=== PATIENT | female | born 1945 | race Caucasian/White ===

== ENCOUNTER 2016-09-09 12:57 | Day surgery (SDC) | payer MEDICARE ==
[~2016-09-09 12:57] MED LIST: AMBI5TAB PO; BEE1CAP PO; BIOT50005 PO; CALC600T25 PO; CENTTAB PO; CORYDALIS PO; COVATAB PO; CYCL1TAB29 PO; FEXO15TA PO; FLAX100013 PO; LOSA50TA2 PO; MAGN1TAB14 PO; MIRA3350 PO; NIAC500T18 PO; OSTEO BI FLEX PO; PREV30CA11 PO; PROBCAP28 PO; PROG1CAP20 PO; RANI75TA8 PO; RED1CAP4 PO; RESV50CA PO; TUMERIC PO; VITACAP7 PO
[2016-09-09 13:24] VITALS: BP 137/93; PULSE 101; RESP 20; TEMP 97.8; O2SAT 93
[2016-09-09] MEDS ORDERED: TRIAMCINOLONE ACETONIDE 40 MG/ML VIAL ONE (14:40)
[2016-09-09 15:10] VITALS: BP 147/76; PULSE 72; RESP 18; TEMP 97.9; O2SAT 97
--- NOTE | 2016-09-09 15:14 | PD.RAD ---
Post Procedure Progress Note Pre Procedure Diagnosis: (1) Back pain Post Procedure Diagnosis: (1) Back pain Procedure Date: Sep 09, 2016 Supervising Radiologist: Ricardo Zimmer Proceduralist/Assist: RT Lucy(R), RT Alfred(R) Anesthesia: Local Plan of Activity Patient to Unit: [facility] Patient Condition: Good See PACS Report for procedural detail/treatment Spinal Procedure Nerve Root Injection L5, S1 Ricardo Zimmer MD Sep 09, 2016 15:14
--- NOTE | 2016-09-09 17:41 | RADRPT ---
EXAM DATE/TIME: 09/09/2016 14:55 [facility] COMPARISON: No previous studies available for comparison.8 INDICATIONS : Patient with history of low back pain in need of nerve root injection. MEDICAL HISTORY : HTN, GERD SURGICAL HISTORY : Breast augmentation, Bilateral rotator cuff surgery, Cervical fusion ENCOUNTER: Subsequent ACUITY: 1 month PAIN SCORE: 10/10 LOCATION: Right low back FLUORO TIME: 1.8 minutes CONTRAST: 1 cc Omnipaque (iohexol) 300 ACCESS LEVEL: Right S1 MEDICATIONS: 1.) 1 cc triamcinolone (Kenalog) IA 2.) 1 cc Lidocaine IA RESPONSE: Pre procedure pain level was 10/10. Post procedure pain level was 0/10. PROCEDURE : 1. Fluoroscopically guided nerve root injection. The risks, benefits and alternatives to the procedure were explained and verbal and written consent w as obtained. The site was prepped in sterile fashion. Full sterile technique was used, including ca p, mask, sterile gloves and gown and a large sterile sheet. Hand hygiene and 2% chlorhexidine and/or betadine/alcohol prep was utilized per protocol for cutaneous antisepsis. The skin and subcutaneous tissues were infiltrated with local anesthetic solution. With fluoroscopic guidance the targeted nerve root was localized and positive contrast was injected t o confirm epidural spread. Following this the prescribed medication was injected surrounding the ner ve root sleeve. The patient's preprocedure pain and post procedure pain levels were recorded. CONCLUSION: Uncomplicated fluoroscopically guided nerve root injection as above. Ricardo Zimmer MD on September 09, 2016 at 17:40 Board Certified Radiologist. This report was verified electronically.
--- NOTE | 2016-09-09 17:42 | RADRPT ---
EXAM DATE/TIME: 09/09/2016 14:55 [facility] COMPARISON: NERVE ROOT INJ, LUMB, INIT LVL,RT, November 22, 2014, 15:00. INDICATIONS : Patient with history of low back pain in need of nerve root injection. MEDICAL HISTORY : HTN, GERD SURGICAL HISTORY : Breast augmentation, Bilateral rotator cuff surgery, Cervical fusion ENCOUNTER: Subsequent ACUITY: 1 month PAIN SCORE: 10/10 LOCATION: Right low back FLUORO TIME: 1.8 minutes CONTRAST: 1 cc Omnipaque (iohexol) 300 ACCESS LEVEL: Right L5 MEDICATIONS: 1.) 1 cc triamcinolone (Kenalog) IA 2.) 1 cc Lidocaine IA RESPONSE: Pre procedure pain level was 10/10. Post procedure pain level was 0/10. PROCEDURE : 1. Fluoroscopically guided nerve root injection. The risks, benefits and alternatives to the procedure were explained and verbal and written consent w as obtained. The site was prepped in sterile fashion. Full sterile technique was used, including ca p, mask, sterile gloves and gown and a large sterile sheet. Hand hygiene and 2% chlorhexidine and/or betadine/alcohol prep was utilized per protocol for cutaneous antisepsis. The skin and subcutaneous tissues were infiltrated with local anesthetic solution. With fluoroscopic guidance the targeted nerve root was localized and positive contrast was injected t o confirm epidural spread. Following this the prescribed medication was injected surrounding the ner ve root sleeve. The patient's preprocedure pain and post procedure pain levels were recorded. CONCLUSION: Uncomplicated fluoroscopically guided nerve root injection as above. Ricardo Zimmer MD on September 09, 2016 at 17:40 Board Certified Radiologist. This report was verified electronically.
[2016-09-24] MEDS ORDERED: ALPR.5 PO (13:36)
[2017-01-01] MEDS ORDERED: RANI1TAB5 PO (14:05)
[2017-01-01] MEDS ORDERED: NIAC500T5 PO (14:06)
[2017-01-01] MEDS ORDERED: BIOTCAP PO (14:06)
[2017-01-01] MEDS ORDERED: MULTTAB67 PO (14:06)
[2017-01-08] MEDS ORDERED: IBUP800T23 PO (08:15)
== END 2016-09-09 15:38 | disposition home or self-care (01) ==
LOC: HROP 12:57 → HRIP 12:58 → HROP 15:38
PROVIDERS: ATTEND Family Medicine
DX: M51.37 Other intervertebral disc degeneration, lumbosacral region (principal); I10 Essential (primary) hypertension; K21.9 Gastro-esophageal reflux disease without esophagitis
CPT/HCPCS: 64483; 64484; J3301

== ENCOUNTER 2017-11-30 19:22 | Observation (INO) | payer MEDICARE ==
[~2017-11-30] VITALS: Ht 160 cm; Wt 74.4 kg
[~2017-11-30 19:22] MED LIST changes: +ALPR.5 PO; +ALRE0.2S3 EACH EYE; -AMBI5TAB PO; -BEE1CAP PO; +BENA25TA6 PO; -BIOT50005 PO; +BIOTCAP PO; -CALC600T25 PO; +CALC600T5 PO; -CENTTAB PO; -CORYDALIS PO; +CYCL10TA PO; -CYCL1TAB29 PO; +IBUP1TAB7 PO; +KETO0.02 EACH EYE; +KORE250C PO; -MAGN1TAB14 PO; +MAGN400T3 PO; +MULT10CA PO; +MULTTAB67 PO; -NIAC500T18 PO; +NIAC500T5 PO; -PREV30CA11 PO; +PREV30CA36 PO; +RANI1TAB5 PO; -RANI75TA8 PO; +SYSTSOL EACH EYE; +SYSTSOL15 EACH EYE; -TUMERIC PO
[2017-11-30 19:48] VITALS: BP 205/95; PULSE 99; RESP 18; TEMP 98.5; O2SAT 99
--- NOTE | 2017-11-30 20:11 | RADRPT ---
EXAM DATE/TIME: 11/30/2017 19:57 [facility] COMPARISON: No previous studies available for comparison. INDICATIONS : Chest pain. MEDICAL HISTORY : Hypertension. SURGICAL HISTORY : Breast augmentation. Cervical fusion. ENCOUNTER: Initial ACUITY: 1 day PAIN SCORE: 10/10 LOCATION: Bilateral chest FINDINGS: PA and lateral views of the chest demonstrate the lungs to be symmetrically aerated without evidence of mass, infiltrate or effusion. The cardiomediastinal contours are unremarkable. Osseous structure s are intact. Mild scoliotic curvature. Cervical spinal fusion plate. CONCLUSION: No acute disease. Damon Gaytan Jr., MD on November 30, 2017 at 20:08 Board Certified Radiologist. This report was verified electronically.
--- NOTE | 2017-11-30 20:12 | PD ---
HPI Chief Complaint: Chest Pain Time Seen by Provider: 19:57 Travel History International Travel<30 days: No Contact w/Intl Traveler<30days: No Traveled to known affect area: No History of Present Illness HPI The patient is a 72 year old female who presents to the [facility] emergency department with a history of sudden onset this morning of lightheaded sensation, chest heaviness, palpitations, nausea, diaphoresis, and left arm tingling. The patient reports that she took her blood pressure at that time and it was 180/128. She reports that she took an adult aspirin. She reports that her blood pressure continue to be elevated, therefore she came to the emergency department for evaluation and treatment. She reports that at this time she does have heaviness in her chest on the left side. She reports having tingling sensations down her left arm and into the left fifth digit. She denies having any neck pain. She reports that she continues to have nausea without diaphoresis. She denies any prior history of myocardial infarction, DVT , or PE. She denies having any lower extremity edema, or calf pain. The patient does report having a history of hypertension and hyperlipidemia. She denies any prior history of diabetes mellitus. She reports a history of smoking , however she quit in the 80s. 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 She reports that she had been sick intermittently since July related to urinary tract infections and sinus infections. She reports that 3 months ago she underwent a chemical stress test that was reportedly negative. She denies ever having a cardiac catheterization. The patient reports having a dry intermittent chronic cough. The patient denies having any known recent fevers, new or worsening abdominal pain, vomiting, diarrhea, urinary symptoms, or neurologic symptoms. [facility] Past Medical History Narrative Medical The patient's past medical history is significant for hypertension, hyperlipidemia that is diet controlled, acid reflux. Diminished Hearing: No GERD: Yes Hypertension: Yes Tetanus Vaccination: Unknown Influenza Vaccination: Yes Menopausal: Yes Past Surgical History Narrative Surgical The patient's past surgical history is significant for breast augmentation, Lasix eye surgery, rhinoplasty, sinus surgery, hemorrhoidectomy rotator cuff repair on the left and right, history of facelift, history of cervical fusion. Eye Surgery: Yes (CATARACT) Other Surgery: Yes (BILAT BREAST) Social History Alcohol Use: Yes (Glass WINE OCC) Tobacco Use: No Substance Use: No Allergies-Medications (Allergen,Severity, Reaction): Coded Allergies: codeine (Verified Allergy, Severe, Nausea/Vomiting, 07/15/17) *MDRO Multi-Drug Resistant Organism (Verified Adverse Reaction, Unknown, ) + ESBL E. coli in urine 09/17/14. Reported Meds & Prescriptions Reported Meds & Active Scripts Active Reported [Zolpium] Caltrate 600+D Chew (Calcium Carbonate-Vitamin D Chew) 600-400 Mg-Unit Chew 1 Tab PO BID Co Q-10 (Coenzyme Q10 (Ubidecarenone)) 200 Mg Cap Prometrium (Progesterone Micronized) 100 Mg Cap 100 Mg PO DAILY Benadryl Allergy (Diphenhydramine HCl) 25 Mg Tablet 50 Mg PO HS Divehi Ginseng (Ginseng) 250 Mg Cap 1 Cap PO DAILY Preservision Areds 2 Softgel (Vit C/E/Zn/Coppr/Lutein/Zeaxan) 250-200-40 Capsule 1 Cap PO BID Ibuprofen 800 Mg Tab 800 Mg PO DAILY PRN Multiple Vitamin 1 Tab 1 Tab PO DAILY Niacin 500 Mg Tab 500 Mg PO DAILY Biotin 5 Mg Cap 5 Mg PO Ranitidine 75 (Ranitidine HCl) 75 Mg Tab 75 Mg PO HS Take 30 to 60 minutes before eating food or drinking beverages that cause heartburn. Miralax Powder (Polyethylene Glycol 3350 Powder) 1 Pow Pow 1 Tab PO DAILY Resveratrol 50 Mg Cap 1 Cap PO DAILY Probiotic Daily (Probiotic Product) 1 Cap Cap 1 Tab PO DAILY Red Yeast Rice (Red Yeast Rice Extract) 300 Mg Cap 2 Cap PO DAILY [Osteo-Bi Flex] 1 Tab PO DAILY B Complex (B-Complex Vitamins) 1 Cap 75 Mg PO DAILY Covaryx (Estrogens, Esterified-Methyltestosterone) 1.25-2.5 Mg Tab 1 Tab PO ONE THREE TIMES A WEEK Magnesium 400 Mg Tab 400 Mg PO DAILY Losartan-Hydrochlorothiazide 50-12.5 Mg Tab 1 Tab PO DAILY Prevacid (Lansoprazole) 30 Mg Capdr 30 Mg PO DAILY Flax Seed Oil (Flaxseed (Linseed)) 1,000 Mg Cap 1,200 Mg PO DAILY Bernadette Allergy (Fexofenadine HCl) 180 Mg Tab 180 Mg PO DAILY Flexeril (Cyclobenzaprine HCl) 10 Mg Tab 10 Mg PO TID Calcium (Calcium Carbonate) 600 Mg Tab 2 Tab PO DAILY Review of Systems Except as stated in HPI: all other systems reviewed are Neg General / Constitutional: No: Fever Eyes: No: Visual changes HENT: No: Headaches Cardiovascular: Positive: Chest Pain or Discomfort, Palpitations, Dyspnea on exertion Respiratory: No: Shortness of Breath Gastrointestinal: No: Abdominal Pain Genitourinary: No: Dysuria Musculoskeletal: No: Pain Skin: No Rash Neurologic: No: Weakness Psychiatric: No: Depression Endocrine: No: Polydipsia Hematologic/Lymphatic: No: Easy Bruising Physical Exam Narrative General: The patient is a well-developed well-nourished female in no acute distress. Head and Neck exam: Head is normocephalic atraumatic. Eyes: EOMI, pupils are equal round and reactive to light. Nose: Midline septum with pink mucous membranes Mouth: Dentition unremarkable. Moist mucus membranes. Posterior oropharynx is not erythematous. No tonsillar hypertrophy. Uvula midline. Airway patent. Neck: No palpable lymphadenopathy. No nuchal rigidity. No thyromegaly. Cardiovascular: Regular rate and rhythm without murmurs, gallops, or rubs. No pulse deficit to the extremities on simultaneous auscultation and palpation of her radial artery. Lungs: Clear to auscultation bilaterally. No wheezes, rhonchi, or rales. Abdomen: Soft, without tenderness to palpation in all 4 quadrants of the abdomen. No guarding, rebound, or rigidity. Normal bowel sounds are audible. No tenderness on palpation of McBurney's point. Negative Kenyon sign. Extremities: No clubbing, cyanosis, or edema. 2+ pulses in all 4 extremities. No calf tenderness on palpation. Back: No spinous process tenderness to palpation. No costovertebral angle tenderness to palpation. Neurologic Exam: Grossly nonfocal. Skin Exam: No rash noted. Intact skin that is warm and dry. Data Data Last Documented VS Vital Signs Date Time Temp Pulse Resp B/P (MAP) Pulse Ox O2 Delivery O2 Flow Rate FiO2 11/30/17 20:37 82 18 132/71 (91) 100 Room Air 11/30/17 19:48 98.5 Orders Orders Electrocardiogram (11/30/17 19:45) Complete Blood Count With Diff (11/30/17 19:45) Basic Metabolic Panel (Bmp) (11/30/17 19:45) Ckmb (Isoenzyme) Profile (11/30/17 19:45) Troponin I (11/30/17 19:45) Ecg Monitoring (11/30/17 19:45) B-Type Natriuretic Peptide (11/30/17 19:59) Prothrombin Time / Inr (Pt) (11/30/17 19:59) Act Partial Throm Time (Ptt) (11/30/17 19:59) Hepatic Functional Panel (11/30/17 19:59) Lipase (11/30/17 19:59) Magnesium (Mg) (11/30/17 19:59) Chest, Pa & Lat (11/30/17 19:45) Nitroglycerin Sl (Nitrostat Sl) (11/30/17 20:15) Nitroglycerin 2% Oint (Nitroglycerin 2% (11/30/17 20:15) Admit Order (Ed Use Only) (11/30/17 22:41) Labs Laboratory Tests Test 11/30/17 20:20 White Blood Count 8.2 TH/MM3 Red Blood Count 4.69 MIL/MM3 Hemoglobin 15.3 GM/DL Hematocrit 44.0 % Mean Corpuscular Volume 94.0 FL Mean Corpuscular Hemoglobin 32.6 PG Mean Corpuscular Hemoglobin Concent 34.7 % Red Cell Distribution Width 13.3 % Platelet Count 201 TH/MM3 Mean Platelet Volume 10.8 FL Neutrophils (%) (Auto) 63.6 % Lymphocytes (%) (Auto) 21.0 % Monocytes (%) (Auto) 12.6 % Eosinophils (%) (Auto) 2.2 % Basophils (%) (Auto) 0.6 % Neutrophils # (Auto) 5.2 TH/MM3 Lymphocytes # (Auto) 1.7 TH/MM3 Monocytes # (Auto) 1.0 TH/MM3 Eosinophils # (Auto) 0.2 TH/MM3 Basophils # (Auto) 0.1 TH/MM3 CBC Comment DIFF FINAL Differential Comment Prothrombin Time 10.0 SEC Prothromb Time International Ratio 1.0 RATIO Activated Partial Thromboplast Time 23.9 SEC Blood Urea Nitrogen 12 MG/DL Creatinine 1.18 MG/DL Random Glucose 111 MG/DL Calcium Level 9.0 MG/DL Sodium Level 142 MEQ/L Potassium Level 3.6 MEQ/L Chloride Level 106 MEQ/L Carbon Dioxide Level 27.5 MEQ/L Anion Gap 9 MEQ/L Estimat Glomerular Filtration Rate 45 ML/MIN Magnesium Level 2.3 MG/DL Total Bilirubin 0.5 MG/DL Direct Bilirubin 0.1 MG/DL Indirect Bilirubin 0.4 MG/DL Aspartate Amino Transf (AST/SGOT) 19 U/L Alanine Aminotransferase (ALT/SGPT) 26 U/L Alkaline Phosphatase 70 U/L Total Creatine Kinase 52 U/L Troponin I LESS THAN 0.02 NG/ML B-Type Natriuretic Peptide 63 PG/ML Total Protein 7.6 GM/DL Albumin 3.7 GM/DL Lipase 185 U/L MDM Medical Decision Making Medical Screen Exam Complete: Yes Emergency Medical Condition: Yes Medical Record Reviewed: Yes Differential Diagnosis Acute coronary syndrome, versus pulmonary embolism, versus aortic dissection, versus pneumonia, versus pneumothorax, versus acid reflux Narrative Course During the course of the patient's emergency department visit, the patient's history, examination, and differential diagnosis were reviewed with the patient. The patient was placed on a manager cardiac with oximetry and frequent blood pressure monitoring. The patient had IV access obtained and blood work sent for analysis. The patient had an EKG done on arrival that shows a sinus rhythm heart rate of 86, QRS duration 84 ms, QTC [address] segment elevation is noted. T waves are inverted in V1. The patient was initially provided nitroglycerin sublingual every 5 minutes 3 as needed chest pain, nitroglycerin 1 inch the chest wall. The patient reports that she took an adult aspirin prior to arrival per The patient's laboratory studies were reviewed and remarkable for a white count of 8.2, hemoglobin 15.3, platelets 201 with 12.6- monocytes, basic metabolic profile is remarkable for creatinine 1.18, glucose 111, liver function tests are within normal limits, CPK and troponin I initial set are within normal limits, BNP is 63, lipase 185, PT 10, PTT 23.9. Radiology studies were reviewed and remarkable for a chest x-ray that shows no acute cardiopulmonary disease. The patient will be admitted to the chest pain center for rule out serial cardiac enzyme protocol followed by consideration of additional testing by the parts counter sales person The patient's results were discussed with the patient, including the plan of care. I explained that further testing and/ or monitoring is indicated based on the patient's history, examination, and/ or laboratory findings. Therefore, I recommended admission for additional evaluation. The patient expressed understanding and was agreeable with this plan. The patient was admitted to the hospital in stable condition and sent to a bed under the care of the chest pain center. Diagnosis Primary Impression: Chest pain, rule out acute myocardial infarction Admitting Information Admitting Physician Requests: Francine Hutson MD November 30, 2017 20:12
[2017-11-30] MEDS ORDERED: COQ1200C3 (20:15)
[2017-11-30] MEDS ORDERED: NITROGLYCERIN 0.4 MG SL 25 TABS/BTL SL PRN (20:15)
[2017-11-30] MEDS ORDERED: PROG1CAP20 PO (20:15)
[2017-11-30] MEDS ORDERED: NITROGLYCERIN 2% OINT 1 GM PACKET TOPICAL ONE (20:15)
[2017-11-30] MEDS ORDERED: CALTCHW5 PO (20:15)
[2017-11-30] MEDS ORDERED: [UNRECOGNIZED DRUG - OTHER] (20:15)
[2017-11-30 20:16] VITALS: BP 183/94; PULSE 82; RESP 16; O2SAT 100
[2017-11-30 20:37] VITALS: BP 132/71; PULSE 82; RESP 18; O2SAT 100
[2017-11-30 20:58] LABS: ALBUMIN 3.7 GM/DL (3.4-5.0); DIRECT BILIRUBIN ADULT 0.1 MG/DL (0.0-0.2); MAGNESIUM 2.3 MG/DL (1.5-2.5)
[2017-11-30 21:00] LABS: INDIRECT BILIRUBIN 0.4 MG/DL (0.0-0.8); TOTAL BILIRUBIN ADULT 0.5 MG/DL (0.2-1.0); TOTAL PROTEIN 7.6 GM/DL (6.4-8.2)
[2017-11-30 21:54] LABS: AUTOMATED NEUTROPHIL # 5.2 TH/MM3 (1.8-7.7); BASOPHIL # 0.1 TH/MM3 (0-0.2); BASOPHIL % 0.6 % (0.0-2.0); EOSINOPHIL # 0.2 TH/MM3 (0-0.4); EOSINOPHIL % 2.2 % (0.0-4.0); HEMOGLOBIN 15.3 GM/DL (11.6-15.3); LYMPHOCYTE # 1.7 TH/MM3 (1.0-4.8); MEAN CORPUSCULAR HEMOGLOBIN 32.6 PG (27.0-34.0); MEAN CORPUSCULAR HGB CONC 34.7 % (32.0-36.0); MEAN PLATELET VOLUME 10.8 FL (7.0-11.0); MONO % 12.6 % (0.0-8.0); NEUT % 63.6 % (16.0-70.0); PLATELET COUNT 201 TH/MM3 (150-450); RED BLOOD COUNT 4.69 MIL/MM3 (4.00-5.30); RED CELL DISTRIBUTION WIDTH 13.3 % (11.6-17.2); WHITE BLOOD COUNT 8.2 TH/MM3 (4.0-11.0)
[2017-11-30 22:03] LABS: BLOOD UREA NITROGEN 12 MG/DL (7-18); CHLORIDE 106 MEQ/L (98-107); CREATININE 1.18 MG/DL (0.50-1.00); GLOMERULAR FILTRATION RATE 45 ML/MIN (>89); GLUCOSE,RANDOM 111 MG/DL (74-106); SODIUM (NA) 142 MEQ/L (136-145)
[2017-11-30 22:18] LABS: BICARBONATE 27.5 MEQ/L (21.0-32.0); TROPONIN I LESS THAN 0.02 NG/ML (0.02-0.05)
[2017-12-01] VITALS (9 sets, daily range): BP systolic 114–170; BP diastolic 58–87; PULSE 61–77; RESP 18–20; TEMP 98.1–98.3; O2SAT 95–100
[2017-12-01] MEDS ORDERED: ACETAMINOPHEN 500 MG CPLT PO PRN
[2017-12-01] MEDS ORDERED: SODIUM CHLORIDE 0.9% FLUSH 10 ML FLUSH IV FLUSH PRN
[2017-12-01 02:13] LABS: TROPONIN I LESS THAN 0.02 NG/ML (0.02-0.05)
[2017-12-01 04:32] LABS: TROPONIN I LESS THAN 0.02 NG/ML (0.02-0.05)
[2017-12-01] MEDS ORDERED: SODIUM CHLORIDE 0.9% FLUSH 10 ML FLUSH IV FLUSH SCH (09:00)
--- NOTE | 2017-12-01 09:31 | EKG ---
Date Performed: 11/30/2017 Time Performed: 19:48:49 PTAGE: 72 years EKG: Sinus rhythm BORDERLINE LEFT AXIS DEVIATION BORDERLINE ECG Since PREVIOUS TRACING , no significant change noted PREVIOUS TRACIN09/17/2014 08.54 DOCTOR: Thi Brady Interpretating Date/Time 12/01/2017 09:31:03
--- NOTE | 2017-12-01 09:34 | EKG ---
Date Performed: 12/01/2017 Time Performed: 01:45:14 PTAGE: 72 years EKG: SINUS BRADYCARDIA POSSIBLE RIGHT VENTRICULAR CONDUCTION DELAY BORDERLINE ECG Since PREVIOUS TRACING , no significant change noted PREVIOUS TRACIN11/30/2017 19.48 DOCTOR: Tih Brady Interpretating Date/Time 12/01/2017 09:33:18
--- NOTE | 2017-12-01 09:35 | EKG ---
Date Performed: 12/01/2017 Time Performed: 04:27:38 PTAGE: 72 years EKG: Sinus rhythm WITH SINUS ARRHYTHMIA POSSIBLE LEFT ATRIAL ENLARGEMENT INDETERMINATE AXIS POSSIBLE RIGHT VENTRICULAR CONDUCTION DELAY SEPTAL MYOCARDIAL INFARCTION ABNORMAL ECG artifact Since PREVIOUS TRACING , no significant change noted PREVIOUS TRACIN12/01/2017 01.45 DOCTOR: Thi Brady Interpretating Date/Time 12/01/2017 09:33:58
[2017-12-01] MEDS ORDERED: METOPROLOL TARTRATE 50 MG TAB PO SCH (09:45)
[2017-12-01] MEDS ORDERED: METOPROLOL TARTRATE 5 MG/5 ML VIAL IV PUSH PRN (09:45)
[2017-12-01] MEDS ORDERED: NITROGLYCERIN 0.4 MG SL 25 TABS/BTL SL SCH (09:45)
[2017-12-01] MEDS ORDERED: NON-FORMULARY DRUG (Losartan-Hydrochlorothiazide 1 TAB) PO SCH (10:45)
[2017-12-01] MEDS ORDERED: LOSARTAN 50 MG TAB PO SCH (10:52)
[2017-12-01] MEDS ORDERED: HYDROCHLOROTHIAZIDE 12.5 MG CAP PO SCH (10:52)
[2017-12-01] MEDS ORDERED: NITROGLYCERIN 0.4 MG SL 25 TABS/BTL SL ONE (11:01)
--- NOTE | 2017-12-01 11:34 | HHI.HP ---
[facility] Primary Care Physician Ramana Mcwilliams MD Chief Complaint Chest pain History of Present Illness This is a 72-year-old female history of hypertension and hyperlipidemia the presents to ED stating that yesterday she had sensation of palpitations which she describes as a sensation of of a hot hicks. That also was the type of discomfort that she described. She also felt lightheaded. She checked her blood pressure and found to be 180/128. At that point she decided to come to the ED. 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 Currently denies any chest discomforts. Denies sensation of heart beating rapidly or irregularly. Voices compliance with her blood pressure medication which is losartan/HCT 50/12.5 mg daily. Review of Systems General: Patient denies fevers, chills, and recent travel. HEENT: Patient denies headache, sore throat, difficulty swallowing. Cardiovascular: Planes of palpitations but not necessarily beating irregularly or rapidly. States it felt like a hot rushing sensation in her chest. Has the chest discomfort as mentioned above. Denies sensation of heart beating rapidly or irregularly. No syncope. Denies diaphoresis. Respiratory: Denies shortness of breath or inspirational chest discomfort. Denies coughing wheezing or hemoptysis. GI: Patient denies nausea, vomiting, diarrhea, abdominal pain, bloody stools. Musculoskeletal: Patient denies joint pain or edema. Denies calf pain or edema. Neurovascular: Patient denies numbness, tingling, weakness in extremities. Denies headache. Endocrine: Denies polyuria and polydipsia. Hematologic: Denies easy bruising. Skin: Denies rash or itching. Past Family Social History Allergies: Coded Allergies: codeine (Verified Allergy, Severe, Nausea/Vomiting, 07/15/17) *MDRO Multi-Drug Resistant Organism (Verified Adverse Reaction, Unknown, ) + ESBL E. coli in urine 09/17/14. Past Medical History Hypertension and hyperlipidemia. Denies diabetes and known CAD. Past Surgical History Cervical fusion. Rotator cuff repair of left and right. Reported Medications Reported Meds & Active Scripts Active Reported [Zolpium] Caltrate 600+D Chew (Calcium Carbonate-Vitamin D Chew) 600-400 Mg-Unit Chew 1 Tab PO BID Co Q-10 (Coenzyme Q10 (Ubidecarenone)) 200 Mg Cap Prometrium (Progesterone Micronized) 100 Mg Cap 100 Mg PO DAILY Benadryl Allergy (Diphenhydramine HCl) 25 Mg Tablet 50 Mg PO HS Tamazight Ginseng (Ginseng) 250 Mg Cap 1 Cap PO DAILY Preservision Areds 2 Softgel (Vit C/E/Zn/Coppr/Lutein/Zeaxan) 250-200-40 Capsule 1 Cap PO BID Ibuprofen 800 Mg Tab 800 Mg PO DAILY PRN Multiple Vitamin 1 Tab 1 Tab PO DAILY Niacin 500 Mg Tab 500 Mg PO DAILY Biotin 5 Mg Cap 5 Mg PO Ranitidine 75 (Ranitidine HCl) 75 Mg Tab 75 Mg PO HS Take 30 to 60 minutes before eating food or drinking beverages that cause heartburn. Miralax Powder (Polyethylene Glycol 3350 Powder) 1 Pow Pow 1 Tab PO DAILY Resveratrol 50 Mg Cap 1 Cap PO DAILY Probiotic Daily (Probiotic Product) 1 Cap Cap 1 Tab PO DAILY Red Yeast Rice (Red Yeast Rice Extract) 300 Mg Cap 2 Cap PO DAILY [Osteo-Bi Flex] 1 Tab PO DAILY B Complex (B-Complex Vitamins) 1 Cap 75 Mg PO DAILY Covaryx (Estrogens, Esterified-Methyltestosterone) 1.25-2.5 Mg Tab 1 Tab PO ONE THREE TIMES A WEEK Magnesium 400 Mg Tab 400 Mg PO DAILY Losartan-Hydrochlorothiazide 50-12.5 Mg Tab 1 Tab PO DAILY Prevacid (Lansoprazole) 30 Mg Capdr 30 Mg PO DAILY Flax Seed Oil (Flaxseed (Linseed)) 1,000 Mg Cap 1,200 Mg PO DAILY Bernadette Allergy (Fexofenadine HCl) 180 Mg Tab 180 Mg PO DAILY Flexeril (Cyclobenzaprine HCl) 10 Mg Tab 10 Mg PO TID Calcium (Calcium Carbonate) 600 Mg Tab 2 Tab PO DAILY Active Ordered Medications Current Medications Medications (Trade) Dose Ordered Sig/Simin Route Start Time Stop Time Status Last Admin (Nitrostat Sl) 0.4 mg Q5M PRN SL 11/30/17 20:15 11/30/17 20:25 (NS Flush) 2 ml UNSCH PRN IV FLUSH 12/01/17 00:00 (NS Flush) 2 ml BID IV FLUSH 12/01/17 09:00 12/01/17 09:00 (Tylenol) 500 mg Q4H PRN PO 12/01/17 00:00 (Lopressor) 50 mg SPAGHETTI MACHINE OPERATOR PO 12/01/17 09:45 12/05/17 09:44 (Lopressor Inj) 5 mg SPAGHETTI MACHINE OPERATOR PRN IV PUSH 12/01/17 09:45 12/05/17 09:44 12/01/17 11:14 (Nitrostat Sl) 0.4 mg ONCE SL 12/01/17 09:45 12/05/17 09:44 (Cozaar) 50 mg DAILY PO 12/01/17 10:52 (Microzide) 12.5 mg DAILY PO 12/01/17 10:52 Family History Denies family history of CAD. Social History Does not smoke. Has occasional glass of wine. Denies illicit drug use per Physical Exam Vital Signs Vital Signs Date Time Temp Pulse Resp B/P (MAP) Pulse Ox O2 Delivery O2 Flow Rate FiO2 12/01/17 11:16 61 144/78 (100) 12/01/17 10:52 77 18 148/63 (91) 100 12/01/17 10:19 68 142/70 (94) 12/01/17 08:05 98.1 72 20 114/60 (78) 95 12/01/17 08:00 68 12/01/17 00:16 12/01/17 00:00 97 Nasal Cannula 2.00 11/30/17 20:37 82 18 132/71 (91) 100 Room Air 11/30/17 20:16 82 16 183/94 (123) 100 Room Air 11/30/17 20:02 92 100 11/30/17 19:48 98.5 99 18 205/95 (131) 99 Physical Exam GENERAL: This is a well-nourished, well-developed patient, in no apparent distress. Patient speaks in clear complete sentences. Patient is pleasant. HEENT: Head is atraumatic and normocephalic. Neck is supple without lymphadenopathy and trachea is midline. No JVD or carotid bruits. CARDIOVASCULAR: Regular rate and rhythm without murmurs, gallops, or rubs. RESPIRATORY: Clear to auscultation. Breath sounds equal bilaterally. No wheezes , rales, or rhonchi. Chest wall is nontender. No use of accessory muscles. GASTROINTESTINAL: Abdomen is nontender, nondistended. Abdomen soft. No obvious pulsatile mass or bruit. No CVA tenderness. Strong femoral pulses bilaterally. Normal bowel sounds in all quadrants. MUSCULOSKELETAL: Patient is moving upper and lower extremities freely. No calf tenderness or edema, no Homans sign. Strong pulses in upper and lower extremities. NEUROLOGICAL: Patient is alert and oriented. Cranial nerves 2-12 are grossly intact. No focal deficits and speech is clear. SKIN: No rash and turgor is normal. Laboratory Laboratory Tests Test 11/30/17 20:20 12/01/17 01:20 12/01/17 03:10 White Blood Count 8.2 Red Blood Count 4.69 Hemoglobin 15.3 Hematocrit 44.0 Mean Corpuscular Volume 94.0 Mean Corpuscular Hemoglobin 32.6 Mean Corpuscular Hemoglobin Concent 34.7 Red Cell Distribution Width 13.3 Platelet Count 201 Mean Platelet Volume 10.8 Neutrophils (%) (Auto) 63.6 Lymphocytes (%) (Auto) 21.0 Monocytes (%) (Auto) 12.6 Eosinophils (%) (Auto) 2.2 Basophils (%) (Auto) 0.6 Neutrophils # (Auto) 5.2 Lymphocytes # (Auto) 1.7 Monocytes # (Auto) 1.0 Eosinophils # (Auto) 0.2 Basophils # (Auto) 0.1 CBC Comment DIFF FINAL Differential Comment Prothrombin Time 10.0 Prothromb Time International Ratio 1.0 Activated Partial Thromboplast Time 23.9 Blood Urea Nitrogen 12 Creatinine 1.18 Random Glucose 111 Calcium Level 9.0 Sodium Level 142 Potassium Level 3.6 Chloride Level 106 Carbon Dioxide Level 27.5 Anion Gap 9 Estimat Glomerular Filtration Rate 45 Magnesium Level 2.3 Total Bilirubin 0.5 Direct Bilirubin 0.1 Indirect Bilirubin 0.4 Aspartate Amino Transf (AST/SGOT) 19 Alanine Aminotransferase (ALT/SGPT) 26 Alkaline Phosphatase 70 Total Creatine Kinase 52 61 75 Troponin I LESS THAN 0.02 LESS THAN 0.02 LESS THAN 0.02 B-Type Natriuretic Peptide 63 Total Protein 7.6 Albumin 3.7 Lipase 185 Result Diagram: 11/30/17201911/30/172019 Imaging Last 24 hours Impressions Chest X-Ray 11/30/171944 Signed Impressions: Service Date/Time: Thursday, November 30, 2017 19:57 - CONCLUSION: No acute disease. Damon Gaytan Jr., MD Course EKGs are sinus rhythm without significant ST segment depressions or elevations. Upon reviewing patient's monitor. There was a 6 beat episode of nonsustained V. tach at 250 5 in the morning. I discussed this with the patient. She states she was sleeping at that time. Caprini VTE Risk Assessment Caprini VTE Risk Assessment: Mod/High Risk (score >= 2) Caprini Risk Assessment Model Point Value = 1 Point Value = 2 Point Value = 3 Point Value = 5 Age 41-60 Minor surgery BMI > 25 kg/m2 Swollen legs Varicose veins or History of unexplained or recurrent spontaneous Oral contraceptives or hormone replacement Sepsis (< 1 month) Serious lung disease, including pneumonia (< 1 month) Abnormal pulmonary function Acute myocardial infarction Congestive heart failure (< 1 month) History of inflammatory bowel disease Medical patient at bed rest Age 61-74 Arthroscopic surgery Major open surgery (> 45 min) Laparoscopic surgery (> 45 min) Malignancy Confined to bed (> 72 hours) Immobilizing plaster cast Central venous access Age >= 75 History of VTE Family history of VTE Factor V Leiden Prothrombin [id number] Lupus anticoagulant Anticardiolipin antibodies Elevated serum homocysteine Heparin-induced thrombocytopenia Other congenital or acquired thrombophilia Stroke (< 1 month) Elective arthroplasty Hip, pelvis, or leg fracture Acute spinal cord injury (< 1 month) Prophylaxis Regimen Total Risk Factor Score Risk Level Prophylaxis Regimen 0-1 Low Early ambulation 2 Moderate Order ONE of the following: *Sequential Compression Device (SCD) *Heparin 5000 units SQ BID 3-4 Higher Order ONE of the following medications: *Heparin 5000 units SQ TID *Enoxaparin/Lovenox 40 mg SQ daily (WT < 150 kg, CrCl > 30 mL/min) *Enoxaparin/Lovenox 30 mg SQ daily (WT < 150 kg, CrCl > 10-29 mL/min) *Enoxaparin/Lovenox 30 mg SQ BID (WT < 150 kg, CrCl > 30 mL/min) AND/OR *Sequential Compression Device (SCD) 5 or more Highest Order ONE of the following medications: *Heparin 5000 units SQ TID (Preferred with Epidurals) *Enoxaparin/Lovenox 40 mg SQ daily (WT < 150 kg, CrCl > 30 mL/min) *Enoxaparin/Lovenox 30 mg SQ daily (WT < 150 kg, CrCl > 10-29 mL/min) *Enoxaparin/Lovenox 30 mg SQ BID (WT < 150 kg, CrCl > 30 mL/min) AND *Sequential Compression Device (SCD) Assessment and Plan Assessment and Plan * Chest pain: Patient has had serial cardiac enzymes and EKGs for ruling out purposes. Patient has been seen by Dr. Brady of cardiology in the chest pain center. She will undergo a CTA of the coronaries and further plan will be pending the results of that study. Patient will eventually need follow-up with her flat knitter. Patient should return to ED for interval issues. * Hypertension: Resume her medication. Add amlodipine. * Hyperlipidemia: Patient states she was unable to tolerate statins quite a while ago. She should further discuss this with her physician to see if there is a statin that she will tolerate. * Nonsustained ventricular tachycardia: This is observed at 255 this morning on the monitor. Patient was asleep at the time and was not aware of any symptoms. This was discussed with Dr. Brady. A copy of the strip will be provided to the patient certainly discussed with her flat knitter on outpatient basis. Patient is stable at this time. She is agreeable to this plan Seferino Jacobson December 01, 2017 11:33
[2017-12-01] MEDS ORDERED: IODIXANOL 320 MG/ML 10 ML VIAL (for Rad CT) IVCONTRAST ONE (11:35)
[2017-12-01] MEDS ORDERED: amLODIPine BESYLATE 5 MG TAB PO ONE (15:30)
--- NOTE | 2017-12-01 15:56 | RADRPT ---
EXAM DATE: 12/01/2017 3:44 PM EDT AGE/SEX: 72 years / Female INDICATIONS: Chest pain. CLINICAL DATA: This is the patient's initial encounter. Patient reports that signs and symptoms have been present for 1 day and indicates a pain score of 3/10. MEDICAL/SURGICAL HISTORY: Hypertension. None. RADIATION DOSE: 7.34 CTDI (mGy) COMPARISON: No prior [facility] exams available for comparison. STUDY QUALITY: TECHNIQUE: The patient was given beta-blockers prior to the procedure. Resting heart rate prior to t he procedure was approximately bpm. Multiple contiguous axial images were obtained through the heart during bolus infusion of 100 ml Visipaque 320 (iodixanol) nonionic water-soluble contrast as a singl e exam dose. Images were acquired during peak arterial contrast. Images were reconstructed using a r etrospective gating algorithm including single sector and multi-sector algorithms at multiple phases of the cardiac cycle. Images were interpreted using a combination of 2D and 3D visualization modes in cluding curved planar reformation, thin slab maximum intensity projection and volume rendering in ord er to evaluate cardiac structure, morphology and function. Using automated exposure control and adjus tment of the mA and/or kV according to patient size, radiation dose was kept as low as reasonably ach ievable to obtain optimal diagnostic quality images. FINDINGS: VESSEL ANALYSIS: There are three aortic valve leaflets with normal origin of the coronary ostia. DOMINANCE: The coronary system is right dominant. LEFT MAIN: Normal size vessel without calcification or stenosis. LAD: Normal size vessel without calcification or stenosis. CIRCUMFLEX: Normal size vessel without calcification or stenosis. RCA: Normal size vessel without calcification or stenosis CONCLUSION: Normal coronaries Electronically signed by: Bryec Prado MD 12/01/2017 3:55 PM EDT
[2017-12-01] MEDS ORDERED: cloNIDine HCL 0.1 MG TAB PO PRN (16:00)
[2017-12-01] MEDS ORDERED: AMLO5TAB2 PO (16:03)
--- NOTE | 2017-12-01 16:04 | HHI.DCPOC ---
Discharge Care Plan Diagnosis: (1) Chest pain (2) Hypertension (3) Hyperlipidemia (4) Non-sustained ventricular tachycardia Goals to Promote Your Health * To prevent worsening of your condition and complications * To maintain your health at the optimal level Directions to Meet Your Goals Take your medications as prescribed Follow your dietary instruction Follow activity as directed Keep your appointments as scheduled Take your immunizations and boosters as scheduled If your symptoms worsen call your PCP, if no PCP go to Urgent Care Center or Emergency Room Smoking is Dangerous to Your Health. Avoid second hand smoke Call the 24-hour hour crisis hotline for domestic abuse at Seferino Jacobson December 01, 2017 16:04
== END 2017-12-01 17:17 | disposition home or self-care (01) ==
LOC: NEPE 19:22 → NEDA 22:43 → NEPFCDU 12-01 00:15
PROVIDERS: ADMIT Internal Medicine Cardiovascular Disease; ATTEND Internal Medicine Cardiovascular Disease
DX: R07.89 Other chest pain (principal); I10 Essential (primary) hypertension; R05 Cough; E78.5 Hyperlipidemia, unspecified; I47.2 Ventricular tachycardia; R00.1 Bradycardia, unspecified; R94.31 Abnormal electrocardiogram [ECG] [EKG]; K21.9 Gastro-esophageal reflux disease without esophagitis
CPT/HCPCS: 71046; 75574; 80048; 80076; 82550; 83690; 83735; 83880; 84484; 85025; 85610; 85730; 93005; 99285; G0378; Q9967

== ENCOUNTER → 2017-12-31 | Day surgery (SDC) | payer MEDICARE ==
[~2017-12-31] MED LIST changes: -ALPR.5 PO; -ALRE0.2S3 EACH EYE; +AMLO5TAB2 PO; +BUPIVACAINE HCL PF 0.75% 30 ML VIAL ONE; +CALTCHW5 PO; +COQ1200C3; -KETO0.02 EACH EYE; +MONT10TA2 PO; +PROPOFOL 200 MG/20 ML AMP IV ONE; -SYSTSOL EACH EYE; -SYSTSOL15 EACH EYE; +TRIAMCINOLONE ACETONIDE 40 MG/ML VIAL I-ARTICULR ONE; +ZOLP10TA3 PO; +[UNRECOGNIZED DRUG - OTHER]
--- NOTE | 2017-12-31 09:27 | M6 ---
cc: Renetta Ny MD DATE: 12/31/2017 PROCEDURE PERFORMED: Fluoroscopically-guided injection, bilateral lumbar facet joints (bilateral L3-4, L4-5, and L5-S1 facet joints. History and physical was completed and signed. Consent was signed. Procedure site was marked. Medications were listed and reconciled. Pain score was recorded. Allergies were noted. Time out was taken. Fluoroscopy time was recorded where applicable. Sedation was administered or directed by Dr. Ny. The patient was given oxygen. The patient was monitored by a registered nurse. Total procedure time was greater than 15 minutes. PROCEDURE NOTE: IV was started. Blood pressure cuff, pulse oximeter and EKG were applied. The patient was placed in the prone position on a Dheeraj table, sedated with small amounts of propofol titrated to effect. Vital signs were monitored and remained stable throughout the procedure. The lumbar area was prepped with alcohol and 10% Betadine solution and draped with sterile drapes. Fluoroscopy was used in a Christopher dog view to clearly visualize the bilateral lumbar facet joints at L3-4, L4-5 and L5-S1. Separate sterile 3.5-inch, 25-gauge spinal needles were advanced into the joints under fluoroscopic guidance. There was negative aspiration for blood or any other type of fluid and at each location, the patient was given 1 mL of Marcaine 0.75%, which contained 10 mg of Kenalog. Following the procedure, the patient was taken to the recovery room with stable vital signs neurologically intact. She will be evaluated immediately and with followup to determine if she has a subjective decrease in her usual pain and a corresponding objective increase in her functional capabilities. Renetta Ny MD [facility] , 09:13 AM , 09:26 AM
== END | disposition home or self-care (01) ==
LOC: PHSDC 07:25
PROVIDERS: ATTEND Pain Medicine Interventional Pain Medicine
DX: M54.5 Low back pain (principal)
CPT/HCPCS: 64493; 64494; 64495; 99152; J3301